=== PATIENT | male | born 1960 | race Asian ===

== ENCOUNTER 2022-04-09 11:31 | Outpatient (CLI) | payer BC ==
--- NOTE | 2022-04-09 19:35 | XRAY Report ---
PROCEDURE: Shoulder 3 View RT INDICATIONS: PAIN OF RIGHT SHOULDER JOINT TECHNIQUE: 4 views of the shoulder were acquired. COMPARISON: None. FINDINGS: Bones: No fractures or dislocations. Mild right shoulder degenerative change. No suspicious bony le sions. Visualized ribs appear intact. Soft tissues: No suspicious soft tissue calcifications. IMPRESSION: Mild right shoulder DJD. Reviewed by: Lowell Forde MD on 04/09/2022 7:34 PM PST Approved by: Lowell Forde MD on 04/09/2022 7:34 PM PST Station ID: [id number]
--- NOTE | 2022-04-09 19:36 | XRAY Report ---
PROCEDURE: Cervical Spine 2 View INDICATIONS: NECK PAIN, PAIN OF RIGHT SHOULDER JOINT TECHNIQUE: 3 view(s) of the cervical spine were acquired. COMPARISON: None. FINDINGS: Bones: No fractures or dislocations to the C7 level. Mild degenerative changes in the cervical spin e most pronounced at C4-C5. The lateral masses of C1 appear intact on the odontoid view. No suspicio us bony lesions. Soft tissues: No prevertebral soft tissue swelling. IMPRESSION: Mild degenerative change in the cervical spine. Reviewed by: Lowell Forde MD on 04/09/2022 7:35 PM PST Approved by: Lowell Forde MD on 04/09/2022 7:35 PM PST Station ID: [id number]
== END 2022-04-09 11:32 | disposition home or self-care (01) ==
LOC: DI.S 11:31
PROVIDERS: ATTEND Nurse Practitioner Family
DX: M47.812 Spondylosis without myelopathy or radiculopathy, cervical region (principal); M19.011 Primary osteoarthritis, right shoulder

== ENCOUNTER 2022-04-10 15:42 | Outpatient (CLI) | payer BC ==
--- NOTE | 2022-04-10 16:16 | CT Report ---
PROCEDURE: HEAD WO INDICATIONS: CLOSED HEAD INJURY TECHNIQUE: Noncontrast 4.5 mm thick angled axial sections acquired from the foramen magnum to the vertex. For r adiation dose reduction, the following was used: automated exposure control, adjustment of mA and/or kV according to patient size. COMPARISON: None. FINDINGS: Image quality: Excellent. CSF spaces: Basal cisterns are patent. No extra-axial fluid collections. Ventricles are normal in size and shape. Brain: No midline shift. No intracranial masses or hemorrhage. Cheung-white matter interface is norm al. Symmetric calcification of the basal ganglia can be seen, which is considered to be within cheryle l limits for age. Age-appropriate brain parenchymal volume loss and chronic small vessel ischemic c hange can be seen. Skull and face: Calvarium and visualized facial bones are intact, without suspicious lesions. Sinuses: Mild mucosal thickening is seen within the ethmoid air cells. Visualized sinuses and mastoi ds are otherwise relatively clear. IMPRESSION: No intracranial hemorrhage is seen. No significant intracranial abnormality is seen. Reviewed by: Jonh Carson MD on 04/10/2022 3:15 PM [place] Approved by: Jonh Carson MD on 04/10/2022 3:15 PM [facility] Station ID: [id number]
== END 2022-04-10 15:43 | disposition home or self-care (01) ==
LOC: DI 15:42
PROVIDERS: ATTEND Nurse Practitioner Family
DX: S09.90XA Unspecified injury of head, initial encounter (principal)